=== PATIENT | female | born 1960 | race Caucasian/White ===

== ENCOUNTER 2016-09-23 10:32 | Day surgery (SDC) | payer MEDICARE, OTHER ==
[2016-09-22 10:41] VITALS: BMI 26.2
[2016-09-23] VITALS (23 sets, daily range): BP systolic 114–182; BP diastolic 54–86; PULSE 70–92; RESP 14–31; Ht 157.5 cm; Wt 65.0 kg
[~2016-09-23] VITALS: Ht 157.5 cm; Wt 65.0 kg
[~2016-09-23 10:32] MED LIST: FOLI-49; METH5TAB PO; NAPR-688 PO
[2016-09-23] MEDS ORDERED: MET25 PO (11:18)
--- NOTE | 2016-09-23 12:41 | RADRPT ---
PROCEDURE: CHEST 1VW CLINICAL INDICATION: Preoperative TECHNIQUE: Single frontal view of the chest was obtained COMPARISON: None FINDINGS: The cardiac size is normal. Mild atherosclerotic calcifications are demonstrated. There is no pulmonary vascular congestion. The lungs are clear. No consolidation, effusion, or pneumothorax. Mild degenerative changes of the visualized osseous structures are visualized. IMPRESSION: 1. No acute cardiopulmonary process. 2. Atherosclerosis. RPTAT:PP .Phi Ayoub MD, MD Date Time Electronically viewed and signed by .Phi Ayoub MD, MD on 09/23/2016 12:41 .V/
[2016-09-23] MEDS ORDERED: CEFAZOLIN 2 GM/50 ML (PMX) 50 ML IVPB ONE (13:00)
[2016-09-23] MEDS ORDERED: SOD CHLORIDE 0.9% 1,000 ML IV SCH (13:00)
[2016-09-23] MEDS ORDERED: NEOSTIGMINE 3 MG/3 ML SYRINGE ONE (14:26)
[2016-09-23] MEDS ORDERED: ROCURONIUM 50 MG INJ ONE (14:26)
[2016-09-23] MEDS ORDERED: METOCLOPRAMIDE 10 MG INJ ONE (14:26)
[2016-09-23] MEDS ORDERED: GLYCOPYRROLATE 0.4 MG INJ ONE (14:26)
[2016-09-23] MEDS ORDERED: PROPOFOL 20 ML ONE (14:26)
[2016-09-23] MEDS ORDERED: MIDAZOLAM 1 MG/ML 2 ML INJ ONE (14:26)
[2016-09-23] MEDS ORDERED: DIPHENHYDRAMINE 50 MG INJ IV PRN (15:30)
[2016-09-23] MEDS ORDERED: MEPERIDINE 25 MG INJ IV PRN (15:30)
[2016-09-23] MEDS ORDERED: ONDANSETRON 4 MG INJ IV PRN ×2 (15:30→16:00)
[2016-09-23] MEDS ORDERED: METOCLOPRAMIDE 10 MG INJ IV PRN (15:30)
[2016-09-23] MEDS ORDERED: LABETALOL HCL 20MG INJ IV PRN (15:30)
[2016-09-23] MEDS ORDERED: EPHEDrine SULFATE 50 MG/5 ML SYG IV PRN (15:30)
[2016-09-23] MEDS ORDERED: OXYCODONE/ACETAMINOPHEN (5/325) TAB PO PRN ×2 (15:30)
[2016-09-23] MEDS ORDERED: HYDROmorphONE (0.2 MG/ML) 10ML SYG IV PRN ×3 (15:30)
[2016-09-23] MEDS ORDERED: ACETAMINOPHEN 1000MG/100ML IV 100 ML IVPB PRN (16:00)
[2016-09-23] MEDS ORDERED: morphine 2 MG INJ IV PRN (16:00)
[2016-09-23] MEDS ORDERED: ACETAMINOPHEN/CODEINE #3 TAB PO PRN (16:00)
[2016-09-23] MEDS: hydrALAzine 20 MG INJ IV PRN (16:34)
[2016-09-23] MEDS: D5W-0.45 NACL + KCL 20 MEQ 1,000 ML IV SCH (21:11)
[2016-09-24] MEDS: D5W-0.45 NACL + KCL 20 MEQ 1,000 ML IV SCH ×3 (03:43→13:09)
[2016-09-24 07:52] VITALS: BP 153/73; RESP 16
[2016-09-24] MEDS ORDERED: ACET1TAB40 PO (14:18)
--- NOTE | 2016-09-24 16:24 | HP ---
Date/Time of Note Date/Time of Note DATE: 09/24/16 TIME: 16:18 Assessment/Plan VTE Prophylaxis VTE Prophylaxis Intervention: SCD's Lines/Catheters IV Catheter Type (from [facility]): Peripheral IV Urinary Cath still in place: No Assessment/Plan Assessment/Plan -Symptomatic cholelithiasis, status post laparoscopic cholecystectomy. Continue Tylenol and morphine as needed for pain and Zofran as needed for nausea. Advance diet per surgery. -Rheumatoid arthritis, on methotrexate. -History of right hip replacement. Further recommendations based on clinical course. Plan of care discussed with Dr. Ford. HPI/ROS Admit Date/Time Admit Date/Time Sep 23, 2016 at 19:15 Hx of Present Illness The patient is a 56-year-old female with history of rheumatoid arthritis currently on methotrexate, patient was complains of recurrent abdominal pain and confirms and symptomatic cholelithiasis. Patient was evaluated by Dr. Valdez in general surgery consultation and underwent laparoscopic cholecystectomy on 09/23/2016. Postoperatively patient experienced significant nausea and pain pain, patient was admitted for further evaluation and management. Patient denies any fever denies any chest pain denies any shortness of breath. ROS 12 point review of systems is negative unless mentioned in HPI PMH/Family/Social Past Medical History Rheumatoid arthritis Past Surgical History Status post right total hip replacement in 2013 Family History Significant Family History: no pertinent family hx Social History Alcohol Use: none Smoking Status: Never smoker Drug Use: none Exam/Review of Systems Vital Signs Vitals Vital Signs Date Time Temp Pulse Resp B/P Pulse Ox O2 Delivery O2 Flow Rate FiO2 09/24/16 07:52 99.4 73 16 153/73 99 09/23/16 18:34 Room Air Intake and Output 09/23/16 09/23/16 09/24/16 15:00 23:00 07:00 Intake Total 1400 ml 1600 ml Output Total 5 ml 1100 ml Balance 1395 ml 500 ml Exam Constitutional: alert, oriented Head: atraumatic, normocephalic Neck: non-tender, supple Respiratory: normal air movement Cardiovascular: nl pulses Gastrointestinal: other (Status post surgery with laparoscopic abdominal incisions), soft Musculoskeletal: nl extremities to inspection Extremities: normal pulses Medications Medications Current Medications Ondansetron HCl (Zofran Inj) 4 mg Q6H PRN IV NAUSEA AND/OR VOMITING Last administered on 09/23/16t 20:06; Admin Dose 4 MG; Start 09/23/16 at 16:00 Morphine Sulfate (morphine) 2 mg Q1H PRN IV PAIN; Start 09/23/16 at 16:00 Acetaminophen/ Codeine Phosphate 1 tab 1 tab Q6H PRN PO PAIN Last administered on 09/24/16 08:30; Admin Dose 1 TAB; Start 09/23/16 at 16:00 Acetaminophen 100 ml @ 400 mls/hr Q6H PRN IVPB PAIN; Start 09/23/16 at 16:00 Potassium Chloride/Dextrose/ Sod Cl (D5-1/2ns + KCl 20 Meq) 1,000 ml @ 125 mls/ hr Q8H IV Last administered on 09/24/16 13:09; Admin Dose 125 MLS/HR; Start at 15:43 SOFIYA CORONADO Sep 24, 2016 16:24
--- NOTE | 2016-09-24 19:43 | DS ---
Date/Time of Note Date/Time of Note DATE: 09/24/16 TIME: 19:39 Discharge Summary Admission/Discharge Info Admit Date/Time Sep 23, 2016 at 19:15 Discharge Date/Time Sep 24, 2016 at 16:30 Discharge Diagnosis -Symptomatic cholelithiasis, status post laparoscopic cholecystectomy. -Rheumatoid arthritis. -History of right hip replacement. Patient Condition: Good Hx of Present Illness The patient is a 56-year-old female with history of rheumatoid arthritis currently on methotrexate, patient was complains of recurrent abdominal pain and confirms and symptomatic cholelithiasis. Patient was evaluated by Dr. Valdez in general surgery consultation and underwent laparoscopic cholecystectomy on 09/23/2016. Postoperatively patient experienced significant nausea and pain pain, patient was admitted for further evaluation and management. Patient denies any fever denies any chest pain denies any shortness of breath. Hospital Course -Symptomatic cholelithiasis, status post laparoscopic cholecystectomy. Pt given Tylenol and morphine as needed for pain and Zofran as needed for nausea. Able to tolerate diet. -Rheumatoid arthritis, on methotrexate. -History of right hip replacement. Home Meds Active Scripts Acetaminophen with Codeine (Acetaminophen-Cod #3 Tablet) 1 Each Tablet, 1 TAB PO Q6H Y for PAIN, #30 TAB Prov:SOFIYA CORONADO 09/24/16 Reported Medications Methotrexate* (Methotrexate*) 2.5 Mg Tab, 40 MG PO TUESDAY, TAB 09/23/16 Discontinued Reported Medications Methotrexate Sodium (Trexall) 5 Mg Tablet, 5 MG PO TUESDAY, TAB 8 TABS EVERY Tuesday09/22/16 Naproxen* (Naproxen*) 500 Mg Tablet, 500 MG PO BID Y for PAIN 08/09/13 Folic Acid* (Folic Acid*) 1 Mg Tablet 04/08/10 Methotrexate Sodium (Trexall) 10 Mg Tablet 04/08/10 Follow-up Plan F/Up with Dr Valdez in 1-2 weeks. Primary Care Provider SOFIYA Ravi Sep 24, 2016 19:43
--- NOTE | 2016-09-27 20:54 | RADRPT ---
Vent Rate: 68 bpm RR Interval: 0 msec HI Interval: 162 msec QRS Duration: 86 msec QT Interval: 406 msec QTC Interval: 431 msec P-R-T [place]: 74 - 49 - 59 degrees Normal sinus rhythm Normal ECG Electronically Signed By: Kenn Ferrari [id number]
--- NOTE | 2016-10-16 11:28 | OPR ---
DATE OF OPERATION: 09/23/2016 PREOPERATIVE DIAGNOSIS: Symptomatic cholelithiasis. POSTOPERATIVE DIAGNOSIS: Symptomatic cholelithiasis. PROCEDURE: Laparoscopic cholecystectomy. ANESTHESIA: General. ANESTHESIOLOGIST: SURGEON: Sahil Valdez MD DATA SUPPORT ANALYST: . INDICATIONS FOR PROCEDURE: The patient is a 56-year-old female who experienced multiple episodes of right upper quadrant pain, and was found to have evidence of cholelithiasis of ultrasound. She was counseled as to the risks versus benefits of cholecystectomy. She consented, and was scheduled for surgery. DESCRIPTION OF PROCEDURE: The patient was brought to the operating theater and placed under general endotracheal tube anesthesia. The abdomen was prepped and draped in the usual sterile fashion. A 2 cm incision was made in the midline just above the umbilicus. The subcutaneous tissue was dissected with cautery down to the anterior rectus sheath. Zero Vicryl stay sutures were then placed on either side of the linea alba. The linea alba was incised and the abdomen was entered without difficulty. The Alie trocar was then placed in the standard fashion, and the abdomen was insufflated to a pressure of approximately 14 mmHg with carbon dioxide. The laparoscope was introduced. Attention was directed to the right upper quadrant, where a distended gallbladder was visualized. Three accessory ports were then placed under direct vision in the standard fashion. Through the lateral port sites, the gallbladder was grasped at the fundus and neck, and retracted cephalad and lateral. The peritoneum overlying the gallbladder was then incised both medially and laterally to facilitate mobilization of the triangle of [place]. With meticulous dissection, the cystic duct was isolated. Two clips were placed across it distally and it was then transected with the endovascular RICO stapler without difficulty. Subsequently, the cystic artery was identified, triply clipped and transected. The gallbladder was then dissected out of the gallbladder fossa using cautery. Prior to final transection, irrigation and inspection took place. Minimal bleeding was controlled with cautery. The gallbladder was transected. The laparoscopic was moved to the 12 mm subcostal port site, and the gallbladder was retrieved from the abdomen through the umbilical port site using the gallbladder retrieval bag. The Alie trocar was then placed back in the abdomen. The abdomen was reinsufflated. The laparoscopic was moved back to the umbilical port site. Final irrigation and inspection took place. There was no evidence of bleeding. The three accessory ports were then removed under direct vision. Again, there was no evidence of bleeding. Finally, the umbilical port was removed. The midline umbilical fascia was reapproximated with 0 Prolene sutures in a [id number] fashion. All wounds were irrigated with Betadine and skin incisions were reapproximated with skin yanique. The patient tolerated the procedure well. The estimated blood loss was 20 mL. There were no complications, and the patient was transported in stable condition to the recovery room. Dictated By: Sahil Valdez MD /minesh/ec /Document#: [id number]
== END 2016-09-24 16:30 | disposition home or self-care (01) ==
LOC: SDS 10:32 → MS2 18:40 → SDS 19:15 → MS2 19:15 → UNDOADMIN 19:15 → UNDODISIN 09-24 16:30 → SDS 09-24 16:30
PROVIDERS: ATTEND Surgery Surgical Oncology
DX: K80.10 Calculus of gallbladder with chronic cholecystitis without obstruction (principal); M06.9 Rheumatoid arthritis, unspecified
CPT/HCPCS: 47562; 71010; 88304; 93005; J0360; J2250; J2405; J2710; J2765; J3480

== ENCOUNTER 2018-11-27 13:32 | Inpatient (IN) | payer MEDICARE, MEDICAID ==
[~2018-11-27] VITALS: Ht 157.5 cm; Wt 60.0 kg
[~2018-11-27 13:32] MED LIST changes: +ACET1TAB40 PO; +ALBU18HF INHALATION; -FOLI-49; +IBUP-1545 PO; +LEVO500T10 PO; +MET25 PO; -METH5TAB PO; -NAPR-688 PO; +PRED10TA PO; +PRED20TA PO
[2018-11-27] MEDS ORDERED: AZITHROMYCIN 500MG/NS (PMX) 250 ML IV STA (16:27)
[2018-11-27] MEDS ORDERED: CEFTRIAXONE 1 GM/50 ML (PMX) 50 ML IVPB STA (16:27)
[2018-11-27] MEDS ORDERED: SOD CHLORIDE 0.9% 1,000 ML IV STA (16:27)
[2018-11-27] MEDS ORDERED: ALBUTEROL 0.083% (NEB) 2.5 MG/3 ML AMP INH ONE (16:30)
[2018-11-27] MEDS ORDERED: ONDANSETRON 4 MG INJ IV PRN ×2 (20:30→22:00)
[2018-11-27] MEDS ORDERED: ACETAMINOPHEN 325 MG TAB PO PRN (20:30)
[2018-11-27 22:00] VITALS: BP 126/73; PULSE 81; RESP 18
[2018-11-27] MEDS ORDERED: BISACODYL (EC) 5 MG TAB PO PRN (22:00)
[2018-11-27] MEDS ORDERED: ALBUTEROL/IPRATROPIUM (NEB) 3 ML AMP HHN PRN (22:00)
[2018-11-27] MEDS ORDERED: DOCUSATE SODIUM 100 MG CAP PO PRN (22:00)
[2018-11-27] MEDS ORDERED: NACL 0.9% 3 ML SYG IV SCH (22:00)
[2018-11-27 22:17] VITALS: Ht 157.5 cm; Wt 60.0 kg
[2018-11-28] MEDS ORDERED: ALBUTEROL 18 GM INHALER INH SCH (03:30)
[2018-11-28 04:00] VITALS: BP 109/60; PULSE 80; RESP 18
[2018-11-28] MEDS: ALBUTEROL HFA 8 GM INHALER INH SCH ×6 (04:40→20:58)
[2018-11-28 07:16] VITALS: BP 117/61; PULSE 72; RESP 20
[2018-11-28 11:17] VITALS: BP 129/65; PULSE 76; RESP 20
[2018-11-28 15:52] VITALS: BP 120/73; PULSE 75; RESP 20
[2018-11-28] MEDS ORDERED: CEFTRIAXONE 1 GM/50 ML (PMX) 50 ML IVPB SCH (16:00)
[2018-11-28] MEDS: AZITHROMYCIN 250 MG in SOD CHLORIDE 0.9% 250 ML IVPB SCH (16:29)
[2018-11-28 20:00] VITALS: BP 126/60; PULSE 84; RESP 18
[2018-11-29] VITALS: BP 124/62; PULSE 80; RESP 18
[2018-11-29] MEDS: ALBUTEROL HFA 8 GM INHALER INH SCH ×6 (01:03→20:46)
[2018-11-29 03:42] VITALS: BP 113/60; PULSE 66; RESP 18
[2018-11-29 07:27] VITALS: BP 109/63; PULSE 70; RESP 22
[2018-11-29 11:30] VITALS: BP 132/73; PULSE 71; RESP 22
[2018-11-29] MEDS ORDERED: GUAIFENESIN/CODEINE 5ML CUP PO PRN (12:30)
[2018-11-29] MEDS: CEFEPIME 1GM/50 ML (PMX) 50 ML IVPB SCH ×2 (12:35→20:46)
[2018-11-29] MEDS: CEPASTAT LOZENGE MT PRN (12:36)
[2018-11-29] MEDS: LIDOCAINE 5% PATCH TD SCH (12:36)
[2018-11-29] MEDS: ALBUTEROL 0.083% (NEB) 2.5 MG/3 ML AMP HHN SCH ×2 (12:50→20:00)
[2018-11-29 15:43] VITALS: BP 114/64; PULSE 82; RESP 22
[2018-11-29] MEDS: AZITHROMYCIN 250 MG in SOD CHLORIDE 0.9% 250 ML IVPB SCH (15:48)
[2018-11-29 20:00] VITALS: BP 137/76; PULSE 90; RESP 18
[2018-11-30] VITALS (7 sets, daily range): BP systolic 101–126; BP diastolic 51–67; PULSE 70–96; RESP 18–22
[2018-11-30] MEDS: ALBUTEROL HFA 8 GM INHALER INH SCH ×6 (04:20→20:30)
[2018-11-30] MEDS: CEFEPIME 1GM/50 ML (PMX) 50 ML IVPB SCH ×2 (08:14→21:13)
[2018-11-30] MEDS: LIDOCAINE 5% PATCH TD SCH (08:15)
[2018-11-30] MEDS: ALBUTEROL 0.083% (NEB) 2.5 MG/3 ML AMP HHN SCH ×3 (08:30→20:50)
[2018-11-30] MEDS: GUAIFENESIN/CODEINE 5ML CUP PO SCH ×3 (10:30→17:20)
[2018-11-30] MEDS ORDERED: GUAIFENESIN/DM 5ML CUP PO PRN (10:30)
[2018-11-30] MEDS: AZITHROMYCIN 250 MG in SOD CHLORIDE 0.9% 250 ML IVPB SCH (16:38)
[2018-12-01 04:00] VITALS: BP 110/59; PULSE 67; RESP 18
[2018-12-01] MEDS: GUAIFENESIN/CODEINE 5ML CUP PO SCH ×2 (06:00)
[2018-12-01 07:52] VITALS: BP 130/59; PULSE 58; RESP 18
[2018-12-01] MEDS: ALBUTEROL 0.083% (NEB) 2.5 MG/3 ML AMP HHN SCH ×3 (08:24→20:02)
[2018-12-01] MEDS: CEFEPIME 1GM/50 ML (PMX) 50 ML IVPB SCH ×2 (08:26→20:50)
[2018-12-01] MEDS: AZITHROMYCIN 250 MG TAB PO SCH (08:26)
[2018-12-01] MEDS: LIDOCAINE 5% PATCH TD SCH (08:27)
[2018-12-01] MEDS: GUAIFENESIN LA 600 MG TABSR PO SCH ×2 (11:02→20:50)
[2018-12-01 11:05] VITALS: BP 103/57; PULSE 89; RESP 16
[2018-12-01 15:06] VITALS: BP 110/61; PULSE 68; RESP 16
[2018-12-01] MEDS: ACETAMINOPHEN 325 MG TAB PO PRN (18:26)
[2018-12-01 19:21] VITALS: BP 116/56; PULSE 96; RESP 18
[2018-12-01 23:26] VITALS: BP 113/55; PULSE 87; RESP 19
[2018-12-02 04:00] VITALS: BP 131/72; PULSE 67; RESP 20
[2018-12-02 07:17] VITALS: BP 133/67; PULSE 73; RESP 18
[2018-12-02] MEDS: ALBUTEROL 0.083% (NEB) 2.5 MG/3 ML AMP HHN SCH ×3 (08:05→20:16)
[2018-12-02] MEDS: AZITHROMYCIN 250 MG TAB PO SCH (09:00)
[2018-12-02] MEDS: GUAIFENESIN LA 600 MG TABSR PO SCH ×2 (09:00→20:56)
[2018-12-02] MEDS: CEFEPIME 1GM/50 ML (PMX) 50 ML IVPB SCH ×2 (09:00→20:57)
[2018-12-02] MEDS: LIDOCAINE 5% PATCH TD SCH (09:00)
[2018-12-02 11:16] VITALS: BP 125/65; PULSE 86; RESP 16
[2018-12-02] MEDS: DICLOFENAC SODIUM 1% GEL 100 GM TUBE TP SCH ×3 (12:17→20:56)
[2018-12-02] MEDS: ACETAMINOPHEN 325 MG TAB PO PRN (17:25)
[2018-12-02 18:50] VITALS: BP 105/53; PULSE 92; RESP 20
[2018-12-02 20:30] VITALS: BP 109/56; PULSE 90; RESP 20
[2018-12-02] MEDS: FAMOTIDINE 20 MG TAB PO SCH (20:56)
[2018-12-03 02:00] VITALS: BP 109/58; PULSE 85; RESP 18
[2018-12-03] MEDS: NAPROXEN 500 MG TAB PO PRN ×3 (05:39→22:34)
[2018-12-03] MEDS: ALBUTEROL 0.083% (NEB) 2.5 MG/3 ML AMP HHN SCH ×3 (07:49→19:58)
[2018-12-03 08:16] VITALS: BP 101/54; PULSE 79; RESP 18
[2018-12-03] MEDS: CEFEPIME 1GM/50 ML (PMX) 50 ML IVPB SCH ×2 (09:29→20:17)
[2018-12-03] MEDS: FAMOTIDINE 20 MG TAB PO SCH ×2 (09:29→20:16)
[2018-12-03] MEDS: LIDOCAINE 5% PATCH TD SCH (09:31)
[2018-12-03] MEDS: GUAIFENESIN LA 600 MG TABSR PO SCH ×2 (09:43→20:18)
[2018-12-03] MEDS: AZITHROMYCIN 250 MG TAB PO SCH (09:44)
[2018-12-03] MEDS: DICLOFENAC SODIUM 1% GEL 100 GM TUBE TP SCH ×4 (10:00→20:16)
[2018-12-03 14:00] VITALS: BP 126/71; PULSE 88; RESP 18
[2018-12-03 19:44] VITALS: BP 135/65; PULSE 85; RESP 16
[2018-12-04 02:06] VITALS: BP 119/74; PULSE 73; RESP 20
[2018-12-04] MEDS: GUAIFENESIN LA 600 MG TABSR PO SCH ×2 (08:05→20:46)
[2018-12-04] MEDS: FAMOTIDINE 20 MG TAB PO SCH ×2 (08:05→20:46)
[2018-12-04] MEDS: AZITHROMYCIN 250 MG TAB PO SCH (08:05)
[2018-12-04] MEDS: DICLOFENAC SODIUM 1% GEL 100 GM TUBE TP SCH ×5 (08:05→20:46)
[2018-12-04] MEDS: CEFEPIME 1GM/50 ML (PMX) 50 ML IVPB SCH ×2 (08:05→20:46)
[2018-12-04] MEDS: NAPROXEN 500 MG TAB PO PRN ×2 (08:05→16:19)
[2018-12-04] MEDS: LIDOCAINE 5% PATCH TD SCH (08:09)
[2018-12-04] MEDS: ALBUTEROL 0.083% (NEB) 2.5 MG/3 ML AMP HHN SCH ×3 (08:39→20:26)
[2018-12-04 08:43] VITALS: BP 114/58; PULSE 74; RESP 18
[2018-12-04] MEDS: predniSONE 20 MG TAB PO SCH (12:25)
[2018-12-04 14:00] VITALS: BP 128/61; PULSE 95; RESP 18
[2018-12-04 19:44] VITALS: BP 114/62; PULSE 89; RESP 20
[2018-12-05 02:08] VITALS: BP 102/56; PULSE 78; RESP 18
[2018-12-05 08:25] VITALS: BP 110/60; PULSE 75; RESP 18
[2018-12-05] MEDS: ALBUTEROL 0.083% (NEB) 2.5 MG/3 ML AMP HHN SCH ×3 (08:32→19:26)
[2018-12-05] MEDS: AZITHROMYCIN 250 MG TAB PO SCH (09:11)
[2018-12-05] MEDS: GUAIFENESIN LA 600 MG TABSR PO SCH ×2 (09:12→20:50)
[2018-12-05] MEDS: predniSONE 20 MG TAB PO SCH (09:12)
[2018-12-05] MEDS: DICLOFENAC SODIUM 1% GEL 100 GM TUBE TP SCH ×4 (09:13→20:53)
[2018-12-05] MEDS: LIDOCAINE 5% PATCH TD SCH (09:13)
[2018-12-05] MEDS: CEFEPIME 1GM/50 ML (PMX) 50 ML IVPB SCH (09:14)
[2018-12-05] MEDS: FAMOTIDINE 20 MG TAB PO SCH ×2 (11:13→20:50)
[2018-12-05 14:22] VITALS: BP 126/56; PULSE 93; RESP 18
[2018-12-05] MEDS ORDERED: DOXYCYCLINE 100 MG TAB ONE (19:59)
[2018-12-05 20:00] VITALS: BP 123/59; PULSE 90; RESP 17
[2018-12-05] MEDS: DOXYCYCLINE 100 MG TAB PO SCH (20:50)
[2018-12-05] MEDS: CEPASTAT LOZENGE MT PRN (20:52)
[2018-12-06 02:21] VITALS: BP 122/72; PULSE 76; RESP 18
[2018-12-06] MEDS ORDERED: LEVOFLOXACIN 500 MG TAB ONE (04:28)
[2018-12-06] MEDS: LEVOFLOXACIN 500 MG TAB PO SCH (06:14)
[2018-12-06 07:54] VITALS: BP 127/65; PULSE 63; RESP 16
[2018-12-06] MEDS: ALBUTEROL 0.083% (NEB) 2.5 MG/3 ML AMP HHN SCH ×3 (08:30→19:47)
[2018-12-06] MEDS: LIDOCAINE 5% PATCH TD SCH (09:44)
[2018-12-06] MEDS: DICLOFENAC SODIUM 1% GEL 100 GM TUBE TP SCH ×4 (09:44→21:11)
[2018-12-06] MEDS: DOXYCYCLINE 100 MG TAB PO SCH ×2 (09:45→20:47)
[2018-12-06] MEDS: FAMOTIDINE 20 MG TAB PO SCH ×2 (09:45→20:47)
[2018-12-06] MEDS: predniSONE 20 MG TAB PO SCH (09:45)
[2018-12-06] MEDS: GUAIFENESIN LA 600 MG TABSR PO SCH ×2 (09:45→20:47)
[2018-12-06 14:31] VITALS: BP 104/54; PULSE 82; RESP 16
[2018-12-06] MEDS: KETOROLAC 15 MG INJ IV PRN (15:02)
[2018-12-06 20:00] VITALS: BP 119/60; PULSE 78; RESP 18
[2018-12-07 02:00] VITALS: BP 129/73; PULSE 66; RESP 18
[2018-12-07] MEDS: LEVOFLOXACIN 500 MG TAB PO SCH (06:12)
[2018-12-07] MEDS: KETOROLAC 15 MG INJ IV PRN (06:45)
[2018-12-07] MEDS: ALBUTEROL 0.083% (NEB) 2.5 MG/3 ML AMP HHN SCH (07:38)
[2018-12-07 08:09] VITALS: BP 128/60; PULSE 68; RESP 16
[2018-12-07] MEDS: DOXYCYCLINE 100 MG TAB PO SCH (08:55)
[2018-12-07] MEDS: predniSONE 20 MG TAB PO SCH (08:55)
[2018-12-07] MEDS: FAMOTIDINE 20 MG TAB PO SCH (08:55)
[2018-12-07] MEDS: GUAIFENESIN LA 600 MG TABSR PO SCH (08:55)
[2018-12-07] MEDS: DICLOFENAC SODIUM 1% GEL 100 GM TUBE TP SCH (08:55)
[2018-12-07] MEDS: LIDOCAINE 5% PATCH TD SCH (08:56)
== END 2018-12-07 12:50 | disposition home or self-care (01) | DRG 193 ==
LOC: E/R 13:32 → 6WM 20:19 → PP2 12-03 02:15
PROVIDERS: ADMIT Family Medicine; ATTEND Internal Medicine
DX: J18.9 Pneumonia, unspecified organism (principal); J96.01 Acute respiratory failure with hypoxia; M06.9 Rheumatoid arthritis, unspecified
CPT/HCPCS: 36415; 71045; 71250; 73562; 80053; 80069; 83036; 83735; 84145; 84443; 84484; 85025; 85651; 86038; 86140; 86480; 86606; 86635; 87081; 93005; 94640; 94664; 94669; 96365; 96375; 97161; J0456; J0692; J0696; J1885; J7030; J7050; J7512